=== PATIENT | male | born 1960 | race Caucasian/White ===

== ENCOUNTER 2017-10-26 09:08 | Emergency (ER) | payer MEDICAID ==
[~2017-10-26] VITALS: Ht 157.5 cm; Wt 70.3 kg
[~2017-10-26 09:08] MED LIST: HYDR-4100 PO; INSU100V32 SUBCUT; INSU100V9 SUBCUT; LACT10SO66 PO; LEVO25TA7 PO; LEVO750T45 PO; LIP10 PO; LOP600 PO; LOSA25TA3 PO
[2017-10-26 09:25] VITALS: BP_SYST 167
[2017-10-26] MEDS ORDERED: KETOROLAC TROMETHAMINE 60 MG/2 ML VIAL IM ONE (09:30)
[2017-10-26] MEDS ORDERED: MORPHINE 4 MG/ML INJ. SYRINGE IM ONE (10:30)
[2017-10-26 11:15] VITALS: BP_SYST 152
[2017-10-26] MEDS ORDERED: methylPREDNISolone SOD SUCC/PF 62.5 MG/ML VIAL IM ONE (11:15)
== END 2017-10-26 11:15 | disposition home or self-care (01) ==
LOC: SED 09:08
DX: R07.89 Other chest pain (principal); R10.9 Unspecified abdominal pain; E11.9 Type 2 diabetes mellitus without complications; I10 Essential (primary) hypertension; Z90.49 Acquired absence of other specified parts of digestive tract; Z79.899 Other long term (current) drug therapy
CPT/HCPCS: 96372; 99284; J1885; J2270; J2930

== ENCOUNTER 2018-01-13 03:51 | Emergency (ER) | payer MEDICAID ==
[~2018-01-13] VITALS: Ht 162.6 cm; Wt 68.0 kg
[2018-01-13 04:00] VITALS: BP_SYST 146
[2018-01-13] MEDS ORDERED: NACL 0.9% 1,000 ML IV ONE (04:59)
[2018-01-13] MEDS ORDERED: MORPHINE SULFATE 10 MG/ML VIAL IVP ONE (05:00)
[2018-01-13 05:17] LABS: BILIRUBIN,URINE NEGATIVE (NEGATIVE); CLARITY/URINE CLEAR (CLEAR); COLOR,URINE YELLOW (YELLOW); GLUCOSE,URINE NEGATIVE (NEGATIVE); KETONES,URINE NEGATIVE (NEGATIVE); LEUKOCYTE ESTERASE ,URINE NEGATIVE (NEGATIVE); NITRITE, URINE NEGATIVE (NEGATIVE); PROTEIN URINE NEGATIVE (NEGATIVE)
[2018-01-13 05:18] LABS: BLOOD, URINE TRACE (NEGATIVE)
[2018-01-13 05:43] LABS: HEMATOCRIT 37.3 % (36-54); HEMOGLOBIN 13.3 g/dL (14.0-18.0); MEAN CORPUSCULAR HEMOGLOBIN 32 pg (27-31); MEAN CORPUSCULAR HGB CONC 36 % (32-36); MEAN CORPUSCULAR VOLUME 89 fL (79.0-98.0); PLATELET COUNT (AUTO) 172 K/uL (130-430); RED BLOOD CELL COUNT(AUTO) 4.19 MIL/uL (4.2-6.2); RED CELL DISTRIBUTION WIDTH 11.4 % (9.0-15.0); WHITE BLOOD COUNT (AUTO) 8.1 K/uL (4.8-10.8)
[2018-01-13 05:54] LABS: CALCIUM 8.3 mg/dL (8.4-11.0); CREATININE 0.99 mg/dL (0.55-1.30); POTASSIUM 3.5 mmol/L (3.5-5.1)
[2018-01-13] MEDS ORDERED: POLYETHYLENE GLYCOL 3350, 17 GM/ POWD.PACK PO STA (05:58)
[2018-01-13 05:59] LABS: ALBUMIN 3.7 g/dL (3.4-4.8); TOTAL BILIRUBIN 1.3 mg/dL (0.0-1.0)
[2018-01-13 06:00] LABS: PROTHROMBIN TIME 10.2 SECS (9.5-12.5)
[2018-01-13] MEDS ORDERED: BISACODYL 5 MG TABLET.DR (DULCOLAX) PO ONE (06:00)
[2018-01-13] MEDS ORDERED: BISACODYL 10 MG/SUPPOSITORY RC ONE (06:00)
[2018-01-13] MEDS ORDERED: POLYETHYLENE GLYCOL 3350, 17 GM/ POWD.PACK ONE (06:17)
[2018-01-13 06:19] LABS: BASOPHILS % (MANUAL) 0 % (0-2); EOSINOPHILS % (MANUAL) 3 % (0-7); LYMPHOCYTES % (MANUAL) 6 % (20-46); MONOCYTES % (MANUAL) 4 % (0-11)
[2018-01-13 06:22] LABS: BACTERIA,URINE FEW /HPF (None Seen); WBC,URINE 0-3 /HPF (0-3)
[2018-01-13 06:59] VITALS: BP_SYST 134
== END 2018-01-13 06:59 | disposition home or self-care (01) ==
LOC: SED 03:51
DX: K59.00 Constipation, unspecified (principal); E11.9 Type 2 diabetes mellitus without complications; I10 Essential (primary) hypertension; Z79.899 Other long term (current) drug therapy
CPT/HCPCS: 36415; 74176; 80053; 81000; 83690; 85007; 85027; 85610; 96361; 96374; 99285; J2270; J7030

== ENCOUNTER 2018-11-23 07:02 | Emergency (ER) | payer MEDICAID ==
[~2018-11-23] VITALS: Ht 162.6 cm; Wt 69.9 kg
[2018-11-23 07:09] VITALS: BP_SYST 143
--- NOTE | 2018-11-23 07:15 | NUR ---
Patient to ER bed 5 to gown for evaluation. Side rails up. Report given to Cindy AGUILAR.
--- NOTE | 2018-11-23 07:18 | NUR ---
Patient presented to ER with lower back pain. Patient A&Ox4, ambulatory to ER, pain 10/28, denies N/V. Patient states he has a hx of Knee Surgery 07/2017 & 01/2016, Patient c/o right lower back/hip pain and right ankle pain. Patient states health hx includes diabetes, HTN, hyperlipidemia
--- NOTE | 2018-11-23 07:18 | NUR ---
Patient presented to ER with lower back pain. Patient A&Ox4, ambulatory to ER, pain 11/28, denies N/V,
--- NOTE | 2018-11-23 07:40 | NUR ---
ER Dr. Rich at bedside examining patient.
[2018-11-23 08:10] VITALS: BP_SYST 143
--- NOTE | 2018-11-23 08:10 | NUR ---
Patient given written and verbal discharge instructions and verbalizes understanding. ER MD discussed with patient the results and treatment provided. Patient in stable condition. ID arm band removed. Rx of Soma & [place] given. Patient educated on pain management and to follow up with PMD. Pain Scale 7/10 tolerable for patient. Opportunity for questions provided and answered. Medication side effect fact sheet provided.
== END 2018-11-23 08:10 | disposition home or self-care (01) ==
LOC: SED 07:02
DX: G89.29 Other chronic pain (principal); M54.40 Lumbago with sciatica, unspecified side; E11.9 Type 2 diabetes mellitus without complications; I10 Essential (primary) hypertension; E03.9 Hypothyroidism, unspecified; E78.5 Hyperlipidemia, unspecified; Z79.899 Other long term (current) drug therapy
CPT/HCPCS: 99283

== ENCOUNTER 2019-01-30 09:39 | Emergency (ER) | payer MEDICAID ==
[~2019-01-30] VITALS: Ht 154.9 cm; Wt 68.0 kg
--- NOTE | 2019-01-30 09:50 | NUR ---
Patient to ER bed 6 to gown for evaluation. Side rails up. Report given to REYNA AGUILAR.
[2019-01-30 09:51] VITALS: BP_SYST 165
--- NOTE | 2019-01-30 10:00 | NUR ---
MD Lawson at bedside.
--- NOTE | 2019-01-30 10:23 | NUR ---
RN assessed pt at bedside. pt stated left side neck pain x 2weeks . pt has DM 2 and HTN. pt is stable no distress noted.
--- NOTE | 2019-01-30 10:35 | NUR ---
Patient does not wish to proceed with medical care recommended by Renny. Patient given information related to possible complications, up to and including , which could occur as a result of leaving hospital at this time. Patient verbalizes understanding of risks involved leaving against medical advice. Patient has signed AMA form.
[2019-02-01 18:39] VITALS: BP_SYST 165
== END 2019-01-30 10:35 | disposition left against medical advice (07) ==
LOC: SED 09:39
DX: R51 Headache (principal); M54.2 Cervicalgia; Z53.21 Procedure and treatment not carried out due to patient leaving prior to being seen by health care provider
CPT/HCPCS: 99281

== ENCOUNTER 2019-10-11 09:40 | Emergency (ER) | payer MEDICAID ==
[~2019-10-11] VITALS: Ht 162.6 cm; Wt 78.9 kg
[2019-10-11 09:56] VITALS: BP_SYST 142
[2019-10-11 11:26] VITALS: BP_SYST 142
== END 2019-10-11 11:26 | disposition home or self-care (01) ==
LOC: SED 09:40
DX: H49.20 Sixth [abducent] nerve palsy, unspecified eye (principal); E11.9 Type 2 diabetes mellitus without complications; I10 Essential (primary) hypertension; E03.9 Hypothyroidism, unspecified; E78.5 Hyperlipidemia, unspecified; Z79.899 Other long term (current) drug therapy
CPT/HCPCS: 70450-TC; 99284